=== PATIENT | female | born 1980 | race African-American/Black ===

== ENCOUNTER 2022-12-10 07:10 | Emergency (ER) | payer MEDICAID ==
[~2022-12-10] VITALS: Ht 165.1 cm; Wt 64.8 kg
[2022-12-10 07:46] LABS: Basophils # (auto) 0 10 ^3/uL (0-0.2); Basophils % (auto) 0.5 % (0.0-2.0); Eosinophils # (auto) 0 10 ^3/uL (0-0.8); Eosinophils % (auto) 0.4 % (0.0-7.0); Hematocrit 23.5 % (36.0-46.0); Hemoglobin 7.3 g/dL (12.2-16.2); Lymphocytes # (auto) 1.2 10 ^3/uL (0.4-5.4); Lymphocytes % (auto) 17.3 % (10.0-50.0); Mean Corpuscular Hemoglobin 20.2 pg (28.0-32.0); Mean Corpuscular Hgb Conc. 31.1 g/dL (32.0-36.0); Mean Corpuscular Volume 65.2 fL (80.0-100.0); Monocytes # (auto) 0.6 10 ^3/uL (0-1.3); Monocytes % (auto) 8.6 % (0.0-12.0); Neutrophils % (auto) 73.2 % (37.0-80.0); Red Blood Cells 3.61 10^6/uL (4.0-5.20); Red Cell Distribution Width 17.2 % (11.8-14.3); White Blood Cell 6.9 10^3/uL (4.4-10.8)
[2022-12-10 08:25] LABS: Urine Bacteria NONE SEEN /hpf (None Seen); Urine Blood Negative /uL (Negative); Urine Mucus FEW (None Seen); Urine Specific Gravity 1.028 (1.001-1.035); Urine WBC 39 /hpf (0 - 5)
[2022-12-10 08:30] LABS: Potassium 3.8 mmol/L (3.5-5.1)
[2022-12-10 08:40] LABS: Albumin 3.8 g/dL (3.4-5.0); BUN/Creatinine Ratio 13.9 (10.0-20.0); Bilirubin, Total 0.4 mg/dL (0.2-1.0); Calcium 8.9 mg/dL (8.5-10.1); Total Protein 7.2 g/dL (6.4-8.2)
[2022-12-10] MEDS ORDERED: NITR-87 PO (09:48)
[2022-12-10] MEDS ORDERED: MAALOX PLUS or MAALOX 30 ML PO ONE (10:00)
[2022-12-10] MEDS ORDERED: LIDOCAINE VISCOUS 2% 15ML UD PO ONE (10:00)
[2022-12-10] MEDS ORDERED: DONNATAL 5ml ORAL Elix (BELLADONNA ALK-PHENOBARB) PO ONE (10:00)
[2022-12-10 12:45] VITALS: BP 110/60
== END 2022-12-10 12:47 | disposition home or self-care (01) ==
LOC: ER 07:10
DX: N39.0 Urinary tract infection, site not specified (principal); R10.9 Unspecified abdominal pain; Z98.51 Tubal ligation status; Z79.899 Other long term (current) drug therapy
CPT/HCPCS: 36415; 74176; 80053; 81001; 84484; 85025; 93005

== ENCOUNTER 2025-05-18 08:56 | Emergency (ER) | payer MEDICAID ==
[~2025-05-18] VITALS: Ht 173.7 cm; Wt 80.1 kg
[~2025-05-18 08:56] MED LIST: NITR-87 PO
--- NOTE | 2025-05-18 09:40 | ED.PDOC ---
GI ASSESSMENT HPI Comments 45 year old female PMHx Gastritis, Anemia presents to the ED with a chief complaint of abdominal pain onset 11 days. Patient states she has been experiencing epigastric pain for the past 11 days as well as nausea/vomiting. She experienced diarrhea a few days ago, now resolved. Patient states she experienced similar symptoms in the past, usually Gastritis flare up. Denies fever, chills, constipation, dysuria, hematuria, chest pain, shortness of b reath, headache, melena, blood in stool. No other symptoms or modifying factors present at this time. Chief Complaint: Abdominal Pain Time Seen by MD: 09:30 Reviewed Notes: Medications, Allergies Allergies: Coded Allergies: NO KNOWN ALLERGIES (Unverified , 05/18/25) Home Meds Active Scripts Nitrofurantoin Monohydrate Mac (Macrobid) 100 Mg Cap, 100 MG PO BID for 5 Days, #10 CAP Prov:NANCY HAYWARD MD 12/10/22 Information Source: Patient Mode of Arrival: Ambulatory Timing: Days Duration: Since onset Prehospital treatment: None Quality: Sharp Severity: Moderate Recent: None Recent Hx of: None Pain Location: Epigastric Associated sign and symptoms: Nausea, Vomiting, Abdominal Pain Past Medical History PAST MEDICAL HISTORY: Anemia Surgical History: Tubal Ligation PEDIATRIC ALLERGIST History: Denies all PEDIATRIC ALLERGIST Hx Family History Family History: Reviewed,noncontributory to illness Social History Smoker: Non-Smoker Alcohol: Denies ETOH Use Drugs: Denies Drug Use Lives In: Home Constitutional: denies: chills, diaphoresis, fatigue, fever, malaise, sweats, weakness, others EENTM: denies: blurred vision, double vision, ear bleeding, ear discharge, ear drainage, ear pain, ear ringing, eye pain, eye redness, hearing loss, mouth pain, mouth swelling, nasal discharge, nose bleeding, nose congestion, nose pain, photophobia, tearing, throat pain, throat swelling, voice changes, others Respiratory: denies: cough, hemoptysis, orthopnea, SOB at rest, shortness of breath, SOB with excertion, stridor, wheezing, others Cardiovascular: denies: chest pain, dizzy spells, diaphoresis, Dyspnea on exertion, edema, irregular heart beat, left arm pain, lightheadedness, palpitations, PND, syncope, others Gastrointestinal: reports: abdominal pain, nausea, vomiting; denies: abdomen distended, blood streaked bowels, constipated, diarrhea, dysphagia, difficulty swallowing, hematemesis, melena, poor appetite, poor fluid intake, rectal bleeding, rectal pain, others Genitourinary: denies: abnormal vagina bleeding, burning, dyspareunia, dysuria, flank pain, frequency, hematuria, incontinence, pain, , vagina discharge, urgency, others Neurological: denies: dizziness, fainting, headache, left sided numbness, left sided weakness, numbness, paresthesia, pre-existing deficit, right sided numbnes s, right sided weakness, seizure, speech problems, tingling, tremors, weakness, others Musculoskeletal: denies: back pain, gout, joint pain, joint swelling, muscle pain, muscle stiffness, neck pain, others Integumetry: denies: bruises, change in color, change in hair/nails, dryness, laceration, lesions, lumps, rash, wounds, others Allergic/Immunocompromised: denies: Difficulty Healing, Frequent Infections, Hives, Itching, others Hematologic/Lymphatic: denies: anemia, blood clots, easy bleeding, easy bruising, swollen glands, others Endocrine: denies: excessive hunger, excessive sweating, excessive thirst, excessive urination, flushing, intolerance to cold, intolerance to heat, unexplained weight gain, unexplained weight loss, others Psychiatric: denies: anxiety, bipolar disorder, depression, hopeless, panic disorder, schizophrenia, sleepless, suicidal, others All Other Systems: Reviewed and Negative Physical Exam General Appearance: Normal HEENT: Normal ENT Inspection, Pharynx Normal, TMs Normal Neck: Full Range of Motion, Non-Tender, Normal, Normal Inspection Respiratory: Chest Non-Tender, Lungs Clear, No Accessory Muscle Use, No Respi ratory Distress, Normal Breath Sounds Cardiovascular: No Edema, No JVD, No Murmur, No Gallop, Normal Peripheral Pulses, Regular Rate/Rhythm Breast Exam: Deferred Gastrointestinal: No Organomegaly, Non Tender, No Pulsatile Mass, Normal Bowel Sounds, Soft Genitalia: Deferred Pelvic: Deferred Rectal: Deferred Extremities: No calf tenderness, Normal capillary refill, Normal inspection, Normal range of motion, Non-tender, No pedal edema Musculoskeletal : Apperance: Normal Neurologic: Alert, retread operator II-XII nml as Tested, No Motor Deficits, Normal Affect, Normal Mood, No Sensory Deficits Cerebellar Function: Normal Reflexes: Normal Skin: Dry, Normal Color, Warm Lymphatic: No Adenopathy Was a procedure done? Was a procedure done?: No GI differential Dx Differential Diagnosis: Gastritis/PUD, Gastroenteritis, Dehydration, Bacterial, Viral X-Ray, Labs, Meds, VS Vital Signs Date Time Temp Pulse Resp B/P (MAP) Pulse Ox O2 Delivery O2 Flow Rate FiO2 05/18/25 10:05 74 16 113/79 05/18/25 09:49 98.2 75 18 113/79 (90) 98 98.2 05/18/25 09:49 74 18 98 Room Air* 0 21 05/18/25 08:58 98.4 66 17 126/84 99 98.4 Lab Test 05/18/25 09:41 Range/Units White Blood Count 7.0 4.4-10.8 10^3/uL Red Blood Count 4.44 4.0-5.20 10^6/uL Hemoglobin 14.4 12.2-16.2 g/dL Hematocrit 42.7 36.0-46.0 % Mean Corpuscular Volume 96.2 80.0-100.0 fL Mean Corpuscular Hemoglobin 32.3 H 28.0-32.0 pg Mean Corpuscular Hemoglobin Concent 33.6 32.0-36.0 g/dL Red Cell Distribution Width 13.2 11.8-14.3 % Platelet Count 379 140-450 10^3/uL Mean Platelet Volume 7.7 6.9-10.8 fL Neutrophils (%) (Auto) 72.3 37.0-80.0 % Lymphocytes (%) (Auto) 17.6 10.0-50.0 % Monocytes (%) (Auto) 9.4 0.0-12.0 % Eosinophils (%) (Auto) 0.3 0.0-7.0 % Basophils (%) (Auto) 0.4 0.0-2.0 % Neutrophils # (Auto) 5.1 1.6-8.6 10 ^3/uL Lymphocytes # (Auto) 1.2 0.4-5.4 10 ^3/uL Monocytes # (Auto) 0.7 0-1.3 10 ^3/uL Eosinophils # (Auto) 0 0-0.8 10 ^3/uL Basophils # (Auto) 0 0-0.2 10 ^3/uL Nucleated Red Blood Cells 0.1 % Sodium Level 140 136-145 mmol/L Potassium Level 3.9 3.5-5.1 mmol/L Chloride Level 106 98-107 mmol/L Carbon Dioxide Level 27 20-31 mmol/L Anion Gap 7 5-15 Blood Urea Nitrogen 6 L 9-23 mg/dL Creatinine 0.66 0.550-1.02 mg/dL Glomerular Filtration Rate Calc 110 >90 mL/min BUN/Creatinine Ratio 9.1 L 10.0-20.0 Serum Glucose 82 74-106 mg/dL Calcium Level 9.3 8.7-10.4 mg/dL Current Medications Medications (Trade) Dose Ordered Sig/Everton Route Start Time Stop Time Status Last Admin Sodium Chloride 1,000 ml @ 1,000 mls/hr Q1H ONCE IV 05/18/25 09:30 05/18/25 10:29 DC 05/18/25 10:02 Morphine Sulfate 4 mg ONCE ONCE IV 05/18/25 09:30 05/18/25 09:39 DC 05/18/25 10:05 Pantoprazole Sodium (Protonix) 40 mg ONCE ONCE IV 05/18/25 09:30 05/18/25 09:39 DC 05/18/25 10:04 Ondansetron HCl (Zofran) 4 mg ONCE ONCE IV 05/18/25 09:30 05/18/25 09:39 DC 05/18/25 10:04 Time of 1ST Reevaluation: 10:00 Reevaluation 1ST: Unchanged Patient Education/Counseling: Diagnosis, Treatment, Prognosis Family Education/Counseling: No Family Present SEPSIS Sepsis Screen Date sepsis recognized/suspect: May 18, 2025 Time Sepsis recognized/suspect: 855 Recent Procedure: No On Antibiotic Therapy: No Respiratory Rate >20: No Heart Rate >90: No Temp<36 C (96.8 F) or >38.3 C: No SBP <90 or MAP <65 mmHG: No New Acute Mental Status Change: No Is the patient on CPAP, BIPAP,: No Physician Orders Test, Urine (05/18/25 09:22) Urinalysis (05/18/25 09:22) Vital Signs Date Time Temp Pulse Resp B/P (MAP) Pulse Ox O2 Delivery O2 Flow Rate FiO2 05/18/25 10:05 74 16 113/79 05/18/25 09:49 98.2 75 18 113/79 (90) 98 98.2 05/18/25 09:49 74 18 98 Room Air* 0 21 05/18/25 08:58 98.4 66 17 126/84 99 98.4 Laboratory Tests Test 05/18/25 09:41 White Blood Count 7.0 10^3/uL (4.4-10.8) Medications Medications Dose Ordered Sig/Everton Route Start Time Stop Time Status Last Admin Dose Admin Morphine Sulfate 4 mg ONCE ONCE IV 05/18/25 09:30 05/18/25 09:39 DC 05/18/25 10:05 Ondansetron HCl 4 mg ONCE ONCE IV 05/18/25 09:30 05/18/25 09:39 DC 05/18/25 10:04 Pantoprazole Sodium 40 mg ONCE ONCE IV 05/18/25 09:30 05/18/25 09:39 DC 05/18/25 10:04 Sodium Chloride 1,000 ml @ 1,000 mls/hr Q1H ONCE IV 05/18/25 09:30 05/18/25 10:29 DC 05/18/25 10:02 Departure 1 Departure Time of Disposition: 14:08 (Patient is feeling significantly better. In my judgment patient likely has gastritis. We will discharge patient home with outpatient follow up) Impression: Primary Impression: Acute gastritis Additional Impression: Nausea and vomiting Disposition: 01 HOME / SELF CARE / HOMELESS Condition: Stable Additional Instructions: You likely have gastritis. You can take [id number] omeprazole 20 mg daily for two weeks. For pain you can take the followinam: Ibuprofen 400mg with food Noon: Acetaminophen 1000mg 4pm: Ibuprofen 400mg with food 8pm: Acetaminophen 1000mg You should follow up with your regular doctor within one week to ensure you are doing better. If your symptoms worsen or you have any other concerns then please return to the ER. Discharged With: Self Critical Care Note Critical Care Time?: No Stability Stability form required: No Heart Score Heart Score: Heart Score Response (Comments) Value History N/A 0 EKG N/A 0 Age N/A 0 Risk Factors N/A 0 Troponin N/A 0 Total 0 I personally scribed for HUNTER AVILEZ MD ([email or web address]) on 05/18/25 at 09:40. Electronically submitted by Elizabet Conner ([email or web address]). HUNTER AVILEZ MD May 18, 2025 09:40
[2025-05-18 09:49] VITALS: PULSE 74; RESP 18; TEMP 98.2; O2SAT 98
[2025-05-18] MEDS: SODIUM CHLORIDE 0.9% 1,000 ML IV ONE (10:02)
[2025-05-18 10:04] LABS: Hematocrit 42.7 % (36.0-46.0); Hemoglobin 14.4 g/dL (12.2-16.2); Mean Corpuscular Hemoglobin 32.3 pg (28.0-32.0); Mean Corpuscular Volume 96.2 fL (80.0-100.0); Nucleated Red Blood Cells % 0.1 %
[2025-05-18] MEDS: PANTOPRAZOLE 40 MG/10 ML VIAL INJ IV ONE (10:04)
[2025-05-18] MEDS: ONDANSETRON HCL 4 MG/2 ML VIAL IV ONE (10:04)
[2025-05-18] MEDS: MORPHINE SULFATE 4 MG/ML SYR/VIAL IV ONE (10:05)
[2025-05-18 10:13] LABS: Chloride 106 mmol/L (98-107); Potassium 3.9 mmol/L (3.5-5.1); Sodium 140 mmol/L (136-145)
[2025-05-18 10:14] LABS: Anion Gap 7 (5-15); Calcium 9.3 mg/dL (8.7-10.4); Carbon Dioxide 27 mmol/L (20-31)
[2025-05-18 10:19] LABS: BUN/Creatinine Ratio 9.1 (10.0-20.0); Glucose 82 mg/dL (74-106)
[2025-05-18 10:32] LABS: Blood Urea Nitrogen 6 mg/dL (9-23)
[2025-05-18 14:42] VITALS: BP 116/75; PULSE 66; RESP 18; O2SAT 97
[2025-05-18 16:17] LABS: Urine Protein, UAD Negative (Negative)
== END 2025-05-18 14:46 | disposition home or self-care (01) ==
LOC: ER 08:56
DX: K29.00 Acute gastritis without bleeding (principal); R11.2 Nausea with vomiting, unspecified; Z98.51 Tubal ligation status; Z79.899 Other long term (current) drug therapy
CPT/HCPCS: 36415; 80048; 81001; 81025; 85025; 96361; 96374; 96375; 99284; J2270; J2405; J2470; J7030